=== PATIENT | female | born 1950 | race Caucasian/White ===

== ENCOUNTER 2020-07-06 16:10 | Emergency (ER) | payer OTHER, MEDICARE ==
[2020-07-06] MEDS ORDERED: DIPH/PERTUSS(ACELL)/TETANUS VAC/PF 0.5 ML SYR (>=10YO) IM ONE (16:43)
--- NOTE | 2020-07-06 16:49 | ER Document Report ---
ED Medical Screen (RME) - General Chief Complaint: Laceration Stated Complaint: LACERATION/LEFT ANKLE Time Seen by Provider: 07/06/20 16:34 - HPI Notes: 07/06/20 16:44 71-year-old female with a history of A. fib, pacemaker anxiety who was on Xarelto presents to the emergency room via ambulance today with posterior left ankle laceration after she was accidentally hit by a metal cart at [facility], causing a 4 cm U laceration x1 hour ago. Active bleeding. Patient's unsure if she has had a tetanus in the last 5 or 6 years. Unable to bear full weight. Denies any chest pain, shortness of breath, lightheadedness or dizziness. I have greeted and performed a rapid initial assessment of this patient. A comprehensive ED assessment and evaluation of the patient, analysis of test results and completion of the medical decision making process will be conducted by additional ED providers. PHYSICAL EXAMINATION: GENERAL: Well-appearing, well-nourished and in no acute distress. CV: s1, s2 regular LUNGS: No respiratory distress Musculoskeletal: Normal range of motion NEUROLOGICAL: Normal speech, normal gait. SKIN: Warm, Dry, normal turgor, no rashes or lesions noted. 4cm "U" shaped laceration to posterior aspect of left ankle. The patient was evaluated during a global COVID-19 pandemic and that diagnosis was suspected/considered upon their initial presentation. Their evaluation, treatment and testing was consistent with current guidelines for patients who present with complaints or symptoms and may be related to COVID-19. Physical Exam - Vital signs Vitals: Temp Pulse Resp BP Pulse Ox 98.2 F 75 16 164/60 H 96 07/06/20 16:18 07/06/20 16:18 07/06/20 16:18 07/06/20 16:18 07/06/20 16:18 Course - Vital Signs Vital signs: Temp Pulse Resp BP Pulse Ox 98.2 F 75 16 164/60 H 96 07/06/20 16:18 07/06/20 16:18 07/06/20 16:18 07/06/20 16:18 07/06/20 16:18
--- NOTE | 2020-07-06 17:42 | RADIOLOGY REPORT (SQ) ---
EXAM DESCRIPTION: ANKLE LEFT AP/LATERAL IMAGES COMPLETED DATE/TIME: 07/06/2020 5:22 pm REASON FOR STUDY: r/o fb s/p laceration to posterior ankle COMPARISON: None. NUMBER OF VIEWS: Two views. TECHNIQUE: AP and lateral radiographic images acquired of the left ankle. LIMITATIONS: None. FINDINGS: MINERALIZATION: Normal. BONES: No fracture or dislocation. Plantar and posterior calcaneal spurs are present. JOINTS: No effusions. SOFT TISSUES: No radiopaque foreign body is seen. OTHER: No other significant finding. IMPRESSION: Calcaneal spurs. No acute osseous finding. No foreign body is seen. TECHNICAL DOCUMENTATION: JOB ID: [id number] 2010 [employer]- All Rights Reserved Reading location - IP/workstation name: [email or web address]
[2020-07-06] MEDS ORDERED: LIDOCAINE 1%/EPINEPHRINE INJ 20 ML VIAL INJ ONE (18:51)
--- NOTE | 2020-07-06 18:52 | ER Document Report ---
ED General - General Chief Complaint: Laceration Stated Complaint: LACERATION/LEFT ANKLE Time Seen by Provider: 07/06/20 16:34 Primary Care Provider: BARAK MANZANARES MD [Primary Care Provider] - Follow up as needed Notes: Patient is a very sabas 70-year-old female with a history of atrial fibrillation, currently on Xarelto who presents emergency department with a laceration to her left posterior ankle. Patient states that she was at [facility] and one of the workers was pushing some carts and ended up hitting her posterior ankle, causing a laceration. She received her tetanus vaccine in triage. Patient is able to flex and extend her foot with no difficulty. Past Medical History - Social History Smoking Status: Unknown if Ever Smoked Family History: Reviewed & Not Pertinent Review of Systems - Review of Systems Notes: Constitutional: Negative for fever. Cardiovascular: Negative for chest pain. Respiratory: Negative for shortness of breath. Gastrointestinal: Negative for vomiting Musculoskeletal: Negative for back pain. See HPI. Skin: See HPI Neurological: Negative for weakness or numbness. 10 point ROS negative except as marked above and in HPI. Physical Exam - Vital signs Vitals: Temp Pulse Resp BP Pulse Ox 98.2 F 75 16 164/60 H 96 07/06/20 16:18 07/06/20 16:18 07/06/20 16:18 07/06/20 16:18 07/06/20 16:18 - Notes Notes: PHYSICAL EXAMINATION: GENERAL: Well-appearing, well-nourished and in no acute distress. HEAD: Atraumatic, normocephalic. EYES: sclera anicteric, conjunctiva are normal. ENT: Moist mucous membranes. NECK: Normal range of motion LUNGS: Normal work of breathing HEART: 2+ posterior tibial bilaterally EXTREMITIES: no pitting or edema. No cyanosis. NEUROLOGICAL: No focal neurological deficits. Moves all extremities spontaneously and on command. PSYCH: Normal mood, normal affect. SKIN: Warm, Dry, normal turgor, no rashes. About 5 cm angled laceration noted to Left posterior ankle. Course - Re-evaluation Re-evalutation: 07/06/20 X-ray shows some bone spurs, but there is no fracture. It appears that Achilles tendon is intact. Laceration was repaired with no difficulty. Patient tolerated procedure well. See procedure note. Patient is to follow-up with her primary care provider to have her sutures removed. She is currently on antibiotics, but cannot remember which one it is. Advised her to continue her antibiotics and I will not put her on prophylactic antibiotics at this time. She is in agreement with this plan. Follow-up precautions were given. Verbal discharge instructions were given to the patient. They verbalized understanding. They are stable for discharge. - Vital Signs Vital signs: Temp Pulse Resp BP Pulse Ox 98.5 F 62 16 155/58 H 94 07/06/20 20:50 07/06/20 20:50 07/06/20 20:50 07/06/20 20:50 07/06/20 20:50 - Laboratory Results Critical Laboratory Results Reviewed: No Critical Results - Radiology Results Critical Radiology Results Reviewed: No Critical Results Procedures - Laceration/Wound Repair Left Posterior Ankle Wound length (cm): 5 Wound's Depth, Shape: Superficial, Linear, Flap Laceration pre-procedure: Sterile PPE donned, Sterile drapes applied, Shur-Clens applied Anesthetic type: 1% Lidocaine Volume Anesthetic (mLs): 6 Wound explored: Clean, No foreign body removed Irrigated w/ Saline (mLs): 250 Wound Repaired With: Sutures Suture Size/Type: 4:0, Nylon Number of Sutures: 11 Post-procedure wound care: Sterile dressing applied, Splint applied - eun wrap and post op shoe Post-procedure NV exam normal: Yes Complications: No Adult Front & Back picture: 1 - laceration Discharge - Discharge Clinical Impression: Laceration of ankle Qualifiers: Encounter type: initial encounter Laterality: left Qualified Code(s): S91.012A - Laceration without foreign body, left ankle, initial encounter Condition: Stable Disposition: HOME, SELF-CARE Instructions: Laceration Care (OM), Tetanus Immunization Given ([facility]) Additional Instructions: Please return to your primary doctor, the ED, or an urgent care in 7 days for suture removal. Return immediately if you develop spreading redness around the wound, pus from the wound, worsening pain, or a fever of >100.4. Keep the area clean and dry. Wash gently with soap and water twice daily and cover with antibiotic ointment. Referrals: BARAK MANZANARES MD [Primary Care Provider] - Follow up as needed
[2020-07-06 21:03] VITALS: BP 155/58
== END 2020-07-06 21:00 | disposition home or self-care (01) ==
LOC: ER 16:10
DX: S91.012A Laceration without foreign body, left ankle, initial encounter (principal); W20.8XXA Other cause of strike by thrown, projected or falling object, initial encounter; Y93.89 Activity, other specified; Y92.512 Supermarket, store or market as the place of occurrence of the external cause; M77.32 Calcaneal spur, left foot; I48.91 Unspecified atrial fibrillation; Z79.01 Long term (current) use of anticoagulants; Z23 Encounter for immunization
CPT/HCPCS: 90471; 90715; 99283; J3490